=== PATIENT | female | born 2000 | race Caucasian/White ===

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

== ENCOUNTER 2021-05-13 20:07 | Emergency (ER) | payer OTHER ==
[~2021-05-13] VITALS: Ht 157.5 cm; Wt 63.5 kg
[2021-05-13 20:15] VITALS: BP 121/58
--- NOTE | 2021-05-13 20:18 | NUR ---
TO LOBBY A/W BED AMBULATORY
[2021-05-13 21:33] LABS: BASOPHILS % (AUTO) 0.4 % (0.0-2.0); EOSINOPHILS # (AUTO) 0.1 K/uL (0-0.4); EOSINOPHILS % (AUTO) 1.1 % (0.0-4.0); HEMATOCRIT 41.7 % (36-48); HEMOGLOBIN 13.9 g/dL (12.0-16.0); LYMPHOCYTES # (AUTO) 1.6 K/uL (2.5-16.5); LYMPHOCYTES % (AUTO) 21.5 % (20.5-51.1); MEAN CORPUSCULAR HEMOGLOBIN 31 pg (27-31); MEAN CORPUSCULAR HGB CONC 33 g/dL (33-37); MEAN CORPUSCULAR VOLUME 93.5 fL (80-94); MONOCYTES # (AUTO) 0.4 K/uL (0.8-1.0); MONOCYTES % (AUTO) 5.7 % (1.7-9.3); NEUTROPHILS # (AUTO) 5.2 K/uL (1.8-7.7); NEUTROPHILS % (AUTO) 71.3 % (42.2-75.2); PLATELET COUNT (AUTO) 227 K/uL (140-450); RED BLOOD CELL COUNT(AUTO) 4.46 MIL/uL (4.20-5.40); RED CELL DISTRIBUTION WIDTH 13.1 % (11.6-13.7); WHITE BLOOD COUNT (AUTO) 7.3 K/uL (4.8-10.8)
--- NOTE | 2021-05-13 21:42 | NUR ---
PATIENT PRESENTS TO ED WITH RIGHT LOWER QUADRANT PAIN. PT STATES "I HAVE RIGHT LOWER ABDOMINAL PAIN, IT'S NOT RADIATING ANYWHERE BUT IT ALSO HURTS 8/10, I ALSO WAS VOMITTING YESTERDAY AND HAD A FEVER YESTERDAY, BUT NO FEVER TODAY." DENIES N/V/D; SKIN IS PINK/WARM/DRY; AAOX4 WITH EVEN AND STEADY GAIT; LUNGS CLEAR BL; HR EVEN AND REGULAR; PT DENIES ANY FEVER, CP, SOB, OR COUGH AT THIS TIME; PATIENT STATES PAIN OF 8/10 AT THIS TIME; VSS; PATIENT POSITIONED FOR COMFORT; HOB ELEVATED; BEDRAILS UP X2; BED DOWN. ER MD MADE AWARE OF PT STATUS. PMH: DENIES EBONI
[2021-05-13 21:55] LABS: ANION GAP 12.3 (8-16); CARBON DIOXIDE 24.5 mmol/L (21-32); CREATININE 0.6 mg/dL (0.6-1.3); POTASSIUM 3.8 mmol/L (3.5-5.1); TOTAL BILIRUBIN 0.3 mg/dL (0.0-1.0)
[2021-05-13 22:05] LABS: APPEARANCE,URINE CLEAR (CLEAR); BILIRUBIN,URINE NEGATIVE (NEGATIVE); BLOOD, URINE 1+ (NEGATIVE); COLOR,URINE YELLOW (YELLOW); LEUKOCYTE ESTERASE ,URINE NEGATIVE (NEGATIVE); NITRITE, URINE NEGATIVE (NEGATIVE); UGLUCOSE NEGATIVE (NEGATIVE)
[2021-05-13 22:24] LABS: RBC,URINE 0-5 /HPF (0-5)
[2021-05-14] MEDS ORDERED: CEPH-588 PO (00:25)
[2021-05-14] MEDS ORDERED: IBUP-2218 PO (00:26)
[2021-05-14 00:45] VITALS: BP 118/69
--- NOTE | 2021-05-14 00:45 | NUR ---
Patient discharged with v/s stable. Written and verbal after care instructions given and explained. Patient alert, oriented and verbalized understanding of instructions. Ambulatory with steady gait. All questions addressed prior to discharge. ID band removed. Patient advised to follow up with PMD. Rx of IBUPROFEN, KEFLEX given. Patient educated on indication of medication including possible reaction and side effects. Opportunity to ask questions provided and answered.
== END 2021-05-14 00:45 | disposition home or self-care (01) ==
LOC: MED 20:07
DX: N39.0 Urinary tract infection, site not specified (principal); Z79.1 Long term (current) use of non-steroidal anti-inflammatories (NSAID); Z79.2 Long term (current) use of antibiotics
CPT/HCPCS: 36415; 80053; 81001; 81025; 83690; 85025; 87086; 99284

== ENCOUNTER 2021-06-04 13:13 | Emergency (ER) | payer OTHER ==
[~2021-06-04] VITALS: Ht 157.5 cm; Wt 63.5 kg
[~2021-06-04 13:13] MED LIST: CEPH-588 PO; IBUP-2218 PO
[2021-06-04 13:27] VITALS: BP 101/58
[2021-06-04] MEDS ORDERED: CYCL-711 PO (15:55)
[2021-06-04] MEDS ORDERED: NITR100C7 PO (15:55)
[2021-06-04] MEDS ORDERED: LID5T TP (15:55)
--- NOTE | 2021-06-04 17:11 | NUR ---
Patient discharged with v/s stable. Written and verbal after care instructions given and explained. Patient alert, oriented and verbalized understanding of instructions. Ambulatory with steady gait. All questions addressed prior to discharge. ID band removed. Patient advised to follow up with PMD. Rx of FLEXERIL LIDOERM PATCH, AND MACROBID given. Patient educated on indication of medication including possible reaction and side effects. Opportunity to ask questions provided and answered.
--- NOTE | 2021-06-04 17:11 | NUR ---
NO NURSING INTERVENTIONS GIVEN
== END 2021-06-04 17:11 | disposition home or self-care (01) ==
LOC: MED 13:13
DX: R30.0 Dysuria (principal); M54.5 Low back pain; Z79.899 Other long term (current) drug therapy; Z79.1 Long term (current) use of non-steroidal anti-inflammatories (NSAID); Z79.2 Long term (current) use of antibiotics
CPT/HCPCS: 36415; 81002; 81025; 87086; 87491; 99283

== ENCOUNTER 2021-07-05 11:56 | Emergency (ER) | payer OTHER ==
[~2021-07-05] VITALS: Ht 157.5 cm; Wt 63.5 kg
[~2021-07-05 11:56] MED LIST changes: +CYCL-711 PO; +LID5T TP; +NITR100C7 PO
[2021-07-05 12:08] VITALS: BP 114/60
--- NOTE | 2021-07-05 12:10 | NUR ---
PT TO WAIT IN LOBBY.
--- NOTE | 2021-07-05 12:14 | NUR ---
21 Y/O FEMALE C/O VAGINAL BLEEDING 1DAY WITH MILD CRAMPING 01/02. DENIES FEVER/CHILLS. DENIES N/V. [id number]. TAKING PRENATALS. TOLD TO COME TO ER BY OBGYN. DENIES PMH NKA
--- NOTE | 2021-07-05 12:16 | NUR ---
TED FLEMING WITH PT FOR FURTHER EVALUATION.
--- NOTE | 2021-07-05 12:22 | NUR ---
CERAMICS TEACHER WITH PT IN A.
--- NOTE | 2021-07-05 12:36 | NUR ---
PT TAKEN TO US VIA W/C.
[2021-07-05 12:41] LABS: BASOPHILS % (AUTO) 0.2 % (0.0-2.0); EOSINOPHILS # (AUTO) 0.1 K/uL (0-0.4); EOSINOPHILS % (AUTO) 0.9 % (0.0-4.0); HEMOGLOBIN 13.2 g/dL (12.0-16.0); LYMPHOCYTES # (AUTO) 1.2 K/uL (2.5-16.5); LYMPHOCYTES % (AUTO) 14.4 % (20.5-51.1); MEAN CORPUSCULAR HEMOGLOBIN 32 pg (27-31); MEAN CORPUSCULAR HGB CONC 34 g/dL (33-37); MEAN CORPUSCULAR VOLUME 93.9 fL (80-94); MONOCYTES # (AUTO) 0.5 K/uL (0.8-1.0); MONOCYTES % (AUTO) 5.8 % (1.7-9.3); NEUTROPHILS # (AUTO) 6.4 K/uL (1.8-7.7); NEUTROPHILS % (AUTO) 78.7 % (42.2-75.2); PLATELET COUNT (AUTO) 224 K/uL (140-450); RED BLOOD CELL COUNT(AUTO) 4.16 MIL/uL (4.20-5.40); RED CELL DISTRIBUTION WIDTH 13.1 % (11.6-13.7); WHITE BLOOD COUNT (AUTO) 8.2 K/uL (4.8-10.8)
[2021-07-05 12:55] LABS: ALBUMIN 3.6 g/dL (3.4-5.0); ANION GAP 15.6 (8-16); CARBON DIOXIDE 23.4 mmol/L (21-32); CREATININE 0.6 mg/dL (0.6-1.3); TOTAL BILIRUBIN 0.2 mg/dL (0.0-1.0)
[2021-07-05 14:36] VITALS: BP 118/71
--- NOTE | 2021-07-05 14:37 | NUR ---
Patient discharged with v/s stable. Written and verbal after care instructions given and explained. Patient verbalized understanding. Ambulatory with steady gait. All questions addressed prior to discharge. Advised to follow up with PMD.
== END 2021-07-05 14:36 | disposition home or self-care (01) ==
LOC: MED 11:56
DX: O20.8 Other hemorrhage in early pregnancy (principal); Z3A.01 Less than 8 weeks gestation of pregnancy; Z79.899 Other long term (current) drug therapy
CPT/HCPCS: 36415; 76801; 80053; 81002; 81025; 84702; 85025; 86900; 86901; 99284; Q0092